=== PATIENT | female | born 1980 | race Caucasian/White ===

== ENCOUNTER 2020-10-11 02:06 | Day surgery (SDC) | payer OTHER, SELFPAY ==
[2020-10-11 06:27] VITALS: BMI 29.2
[2020-10-11] MEDS: LACTATED RINGERS 1,000 ML 30 ML IV CONT (06:32)
--- NOTE | 2020-10-11 07:01 | WPDANESEPPF ---
Anes - Initial Pre Proc Eval Procedure: Operation Date: 10/11/20 07:30 Proposed Procedures p Screening Colonoscopy - Norm Templeton MD Date/Time: 10/11/20 07:01 Surgeon: Norm Templeton MD Pre Op Diagnosis: neoplasm screening, hx of colon polyps Patient Data Age: 39 Gender: F Height: 1.78 m Weight: 92.5 kg Allergies Allergy/AdvReac Type Severity Reaction Status Date / Time hydrocodone AdvReac Mild NAUSEA AND Verified 10/11/20 06:25 VOMITING morphine AdvReac Mild Nausea and Verified 10/11/20 06:25 Vomiting Home Medications Medication Instructions Recorded Confirmed Type bupropion HCl 150 mg PO DAILY 10/01/20 10/11/20 History topiramate 25 mg PO BID 10/01/20 10/11/20 History sodium,potassium,mag sulfates 17.5 See Rx Instructions PO .COMPLEX 10/02/20 10/11/20 Rx gram-3.13 gram-1.6 gram oral soln #354 ml Patient hx anesthesia problems: none Family hx anesthesia problems: none PMFSH Past Medical History Medical History Anxiety Hx of migraines Social History Social History Smoking status: Never smoker Alcohol intake: never Substance use: never Substance use type: does not use Living arrangements: with family Spiritual care concerns: No Anes - Eval Final PreProcedure Day of Procedure 10/11/20 07:01 Patient weight: overweight Heart: regular rate and rhythm Lungs: clear to auscultation Airway: Mallampati scale class II Neurological: alert and oriented Last oral intake: >/= 8 hours ASA classification: II Emergent: no Anesthetic plan: proceed Anesthesia type and monitoring: general GIVS and standard monitoring Informed Consent: The patient's anesthetic plan and its attendant risks and benefits were discussed with the patient/family/POA. Questions were solicited and answers provided to the satisfaction of the patient/family/POA.
--- NOTE | 2020-10-11 07:22 | PM.HPGS ---
History of Present Illness History of Present Illness Consent: Risks, benefits, and alternatives have been discussed and questions answered. Patient agrees to proceed with procedure. Chief complaint: neoplasm screening, hx of colon polyps Narrative: Stacy Maria is a 39 year old female with colon polyps 5 years ago, due to have another Review of Systems Constitutional: Constitutional: Denies headache(s) and Denies weakness Eyes: Eyes: Denies blurry vision ENT: Reports Normal hearing present, Denies headache(s) and Denies neck pain Cardiovascular: Cardiovascular: Denies chest pain and Denies dyspnea Respiratory: Respiratory: Denies dyspnea Gastrointestinal: Gastrointestinal: Reports no additional gastrointestinal complaints Genitourinary: Genitourinary: Denies dysuria Musculoskeletal: Musculoskeletal: Denies neck pain Integumentary/Breasts: Skin/Breast: Denies dry skin Neurologic: Reports Normal hearing present, Denies headache(s) and Denies weakness Psychiatric: Psychiatric: Denies anxiety Endocrine: Endocrine: Denies change in body appearance Hematologic/Lymphatic: Hematologic/Lymphatic: Denies easy bleeding Allergic/Immunologic: Allergic/Immunologic: Denies urticaria PMF Past Medical History Medical History (Updated 10/11/20 @ 07:22 by Norm Templeton MD) Anxiety Colon polyp Hx of migraines Social History Social History Smoking status: Never smoker Alcohol intake: never Substance use: never Substance use type: does not use Living arrangements: with family Spiritual care concerns: No Meds Home Medications and Allergies Home Medications Medication Instructions Recorded Confirmed Type bupropion HCl 150 mg PO DAILY 10/01/20 10/11/20 History topiramate 25 mg PO BID 10/01/20 10/11/20 History sodium,potassium,mag sulfates 17.5 See Rx Instructions PO .COMPLEX 10/02/20 10/11/20 Rx gram-3.13 gram-1.6 gram oral soln #354 ml Allergies Allergy/AdvReac Type Severity Reaction Status Date / Time hydrocodone AdvReac Mild NAUSEA AND Verified 10/11/20 06:25 VOMITING morphine AdvReac Mild Nausea and Verified 10/11/20 06:25 Vomiting Exam Const: General: comfortable and no acute distress HENMT: General nose exam: Normal nares present Eyes: General: appearance normal, both eyes and all related structures Neck: Neck: no JVD Resp: Auscultation: clear to auscultation bilaterally Cardio: Rate: regular rate Rhythm: regular rhythm GI: Inspection: non-distended GI Palp: Yes Soft to palpation Skin: General skin exam: normal color Neuro: General: gait normal Speech: normal speech Extrem: General: normal to inspection Psych: Mental Status: mental status grossly normal Assessment and Plan Assessment and plan (1) Colon polyp: Code(s): K63.5 - Polyp of colon Status: Acute Assessment and Plan: colonoscopy
[2020-10-11 07:25] VITALS: BP 110/77; PULSE 86; RESP 18; TEMP 36.2; O2SAT 99
[2020-10-11 07:48] VITALS: BP 98/54; PULSE 75; RESP 19; O2SAT 99
[2020-10-11 07:58] VITALS: BP 106/73; PULSE 74; RESP 20; O2SAT 98
[2020-10-11 08:05] VITALS: BP 111/79; PULSE 73; RESP 21; O2SAT 100
== END 2020-10-11 08:15 | disposition home or self-care (01) ==
PROVIDERS: PCP Physician Assistant; Visit Provider Internal Medicine Gastroenterology
PROC: 0DJD8ZZ Inspection of Lower Intestinal Tract, Via Natural or Artificial Opening Endoscopic (ICD-10-PCS; CPT 45378; principal; 2020-10-11 07:30)
DX: Z12.11 Encounter for screening for malignant neoplasm of colon (principal); D12.0 Benign neoplasm of cecum; K64.8 Other hemorrhoids; K64.4 Residual hemorrhoidal skin tags; F41.9 Anxiety disorder, unspecified; Z86.010 Personal history of colon polyps
CPT/HCPCS: 45380; 88305; J2704; J7120

== ENCOUNTER 2024-08-25 15:09 | Outpatient (CLI) | payer OTHER, SELFPAY ==
--- NOTE | ~2024-08-25 | XR_ITS ---
EXAM/PROCEDURE: XR abdomen/kub 1V - 08/25/2024 15:16 CDT HISTORY: 43 years old Female with Left flank pain COMPARISON: None available. TECHNIQUE: AP view(s) of the abdomen. FINDINGS: The bowel gas pattern is normal. There is no evidence for obstruction. Moderate stool burden. No free intraperitoneal air is identified on this supine radiograph. The visualized soft tissue shadows are unremarkable. No gross bony abnormalities are seen. Visualized portions of lung bases are clear. IMPRESSION: Moderate stool burden. Reviewed, dictated and finalized at location A. IMPRESSION: Moderate stool burden.
== END 2024-08-25 15:10 | disposition home or self-care (01) ==
PROVIDERS: PCP Physician Assistant; Visit Provider Physician Assistant
DX: R19.5 Other fecal abnormalities (principal)
CPT/HCPCS: 74018